=== PATIENT | female | born 1975 | race Caucasian/White ===

== ENCOUNTER 2018-02-05 17:13 | Outpatient (CLI) | END 2018-02-05 17:14 | disposition home or self-care (01) | LOC: LAB 17:13 | PROVIDERS: ATTEND Internal Medicine Rheumatology | DX: M06.9 Rheumatoid arthritis, unspecified (principal); Z76.89 Persons encountering health services in other specified circumstances | CPT/HCPCS: 36415; 80053; 85025; 85651; 86038; 86140; 86200; 86430; 86704; 86706; 86803; 87340 ==

== ENCOUNTER 2018-03-21 15:42 | Outpatient (CLI) | END 2018-03-21 15:43 | disposition home or self-care (01) | LOC: LAB 15:42 | PROVIDERS: ATTEND Internal Medicine Rheumatology | DX: Z79.899 Other long term (current) drug therapy (principal) | CPT/HCPCS: 36415; 80053; 85025 ==

== ENCOUNTER 2018-04-03 11:00 | Emergency (ER) ==
[2018-04-03 11:08] VITALS: BP 123/80; TEMP 98.1; BMI 33.1
--- NOTE | 2018-04-03 11:52 | DI ---
EXAM: Left foot three views HISTORY: Pain COMPARISON: None FINDINGS: The bones are normal. The joints are normal. No focal soft tissue abnormality. IMPERSSION: Normal examination.
--- NOTE | 2018-04-03 11:53 | DI ---
EXAM: Left ankle. Three-view HISTORY: Pain COMPARISON: None FINDINGS: The bones are normal. Ankle mortise is symmetric. No focal soft tissue abnormality. IMPERSSION: Normal examination.
--- NOTE | 2018-04-03 12:22 | ED.PDOC ---
General ED Provider: Dr. IDALIA ONEAL Chief Complaint: Ankle Pain/Injury Stated Complaint: left ankle and fot pain Time Seen by Physician: 11:00 (SEEN WITH LEXI KENNEDY R.N. AT ALL TIMES ) Information Source: Patient Exam Limitations: No limitations Primary Care Provider: CONRAD FAN Nursing and Triage Documentation Reviewed and Agree: Yes Does patient meet sepsis criteria?: No System Inflammatory Response Syndrome: Not Applicable Sepsis Protocol: For patient's 13 years and over: Temp is 96.8 and below OR 101 and greater Pulse >90 BPM Resp >20/minute Acutely Altered Mental Status Are patient's symptoms suggestive of a new infection, such as: -Pneumonia -Skin, Soft Tissue -Endocarditis -UTI -Bone, Joint Infection -Implantable Device -Acute Abdominal Infection -Wound Infection -Meningitis -Blood Stream Catheter Infection -Unknown Musculoskeletal Complaint Exam - Ankle/Foot Complaint/Exam Location of Injury: Reports: Left, Ankle, Foot Mechanism of Injury: Reports: No known trauma Onset/Duration: 2 DAYS Symptoms Are: Reports: Still present Onset of Pain: Reports: Days Initial Severity: Mild Current Severity: Mild Location: Reports: Discrete Character: Reports: Aching Alleviating: Reports: Rest Aggravating: Reports: Movement. Denies: Weight bearing, Prolonged standing Able to Bear Weight: Yes Associated Signs and Symptoms: Denies: Swelling, Redness, Bruising, Fever, Weakness, Numbness, Tingling Gout Risk Factors: Reports: None Related Surgical History: Reports: None Lower Extremity Findings: Absent: Swelling, Ecchymosis, Abnormal contour, Rotation, Ligamentous instability, Laceration, Erythema, Warmth, Blisters Achilles Tendon Abnormality: No Tenderness: Present: Lateral malleolus, Heel Differential Diagnosis: Closed Fracture, Gout, Sprain, Strain Review of Systems - Review Of Systems Constitutional: Reports: No symptoms Eyes: Reports: No symptoms Ears, Nose, Mouth, Throat: Reports: No symptoms Respiratory: Reports: No symptoms Cardiac: Reports: No symptoms GI: Reports: No symptoms : Reports: No symptoms Musculoskeletal: Reports: Joint pain (ANKLE PAIN, FOOT PAIN) Skin: Reports: No symptoms Neurological: Reports: No symptoms Endocrine: Reports: No symptoms Hematologic/Lymphatic: Reports: No symptoms All Other Systems: Reviewed and Negative Past Medical History - Past Medical History Previously Healthy: Yes (ON MTX , HISTORY OF GOUT) Endocrine: Reports: None Cardiovascular: Reports: None Respiratory: Reports: None Hematological: Reports: None Gastrointestinal: Reports: None Genitourinary: Reports: None Neuro/Psych: Reports: None Musculoskeletal: Reports: Gout Cancer: Reports: None Last Menstrual Period: hysterectomy - Surgical History General Surgical History: Reports: None - Family History Family History: Reports: None - Social History Smoking Status: Former smoker Hx Substance Use: No Alcohol Screening: None Physical Exam - Physical Exam Appearance: Well-appearing, No pain distress, Well-nourished Eyes: MAGGI, EOMI, Conjunctiva clear ENT: Ears normal, Nose normal, Oropharynx normal Respiratory: Airway patent, Breath sounds clear, Breath sounds equal, Respirations nonlabored Cardiovascular: RRR, Pulses normal, No rub, No murmur GI/: Soft, Nontender, No masses, Bowel sounds normal, No Organomegaly Musculoskeletal: Normal strength, ROM intact, No edema, No calf tenderness Skin: Warm, Dry, Normal color Neurological: Sensation intact, Motor intact, Reflexes intact, Cranial nerves intact, Alert, Oriented Psychiatric: Affect appropriate, Mood appropriate Critical Care Note - Critical Care Note Total Time (mins): 0 Course - Course Orders, Labs, Meds: Lab Review 04/03/18 11:40 Uric Acid 4.34 Orders Category Date Time Status URIC ACID Stat LAB 04/03/18 11:40 Completed ANKLE, LEFT MIN 3 VIEWS Stat RADS 04/03/18 11:27 Completed FOOT, LEFT 3 VIEWS Stat RADS 04/03/18 11:27 Completed Vital Signs: Temp Pulse Resp BP Pulse Ox 04/03/18 11:00 98.1 F 101 H 20 123/80 97 Departure - Departure Time of Disposition: 12:22 Disposition: HOME SELF-CARE Discharge Problem: Ankle pain Sprain of foot, left Qualifiers: Encounter type: initial encounter Qualified Code(s): S93.602A - Unspecified sprain of left foot, initial encounter Instructions: Arthralgia (ED), Metatarsalgia (DC) Condition: Good Pt referred to PMD for follow-up: Yes IPMP verified?: No Additional Instructions: Please call your Family Physician as soon as possible to schedule a follow-up appointment.SEE YOUR M.D FOR FOLLOW UP RETURN NEEDED Allergies/Adverse Reactions: Allergies No Known Allergies Allergy (Verified 04/03/18 11:10) Home Medications: Ambulatory Orders Gabapentin 600 mg PO TID 01/02/18 Hydrocodone/Acetaminophen [Hydrocodone-Acetamin 7.5-325] 1 each PO TID 01/02/18 Melatonin 3 mg PO DAILY 01/02/18 Folic Acid 1 mg PO DAILY 04/03/18 Methotrexate Sodium [Methotrexate] 2.5 mg PO DIRECTED 04/03/18
== END 2018-04-03 12:45 | disposition home or self-care (01) ==
LOC: ED 11:00
DX: S93.602A Unspecified sprain of left foot, initial encounter (principal); M25.572 Pain in left ankle and joints of left foot
CPT/HCPCS: 36415; 84550; 99282

== ENCOUNTER 2018-05-31 15:18 | Outpatient (CLI) | END 2018-05-31 15:19 | disposition home or self-care (01) | LOC: RHC-LAB 15:18 | PROVIDERS: ATTEND Nurse Practitioner Family | DX: M79.89 Other specified soft tissue disorders (principal); M79.645 Pain in left finger(s) | CPT/HCPCS: 36415; 84550 ==

== ENCOUNTER 2018-07-11 08:03 | Outpatient (CLI) ==
[2018-07-11] MEDS ORDERED: TYLENOL PO STA (08:42)
[2018-07-11] MEDS ORDERED: BENADRYL PO STA (08:43)
[2018-07-11] MEDS ORDERED: SOLU-MEDROL 40 MG IVP STA (08:44)
[2018-07-11] MEDS ORDERED: SODIUM CHLORIDE IV SCH (09:00)
[2018-07-11] MEDS ORDERED: RITUXAN IV SCH (09:00)
[2018-07-11] MEDS ORDERED: SOLU-MEDROL 125 MG IVP STA (13:17)
[2018-07-11 17:25] VITALS: TEMP 98.2
[2018-07-11 17:44] VITALS: BP 115/79
== END 2018-07-11 08:04 | disposition home or self-care (01) ==
LOC: OPMED 08:03
PROVIDERS: ATTEND Internal Medicine Rheumatology
DX: M06.09 Rheumatoid arthritis without rheumatoid factor, multiple sites (principal)
CPT/HCPCS: 96365; 96366; 96375; 96376

== ENCOUNTER 2018-08-16 07:52 | Outpatient (CLI) ==
--- NOTE | 2018-08-16 14:57 | MRI ---
EXAM: MRI lumbar spine without IV contrast. DATE: 16 August 2018. HISTORY: Chronic low back pain. TECHNIQUE: Sagittal and axial T1W and T2W sequences of the lumbar spine along with sagittal IR and c oronal T2W sequences were obtained using 1.2 Rachelle magnet. No IV contrast. COMPARISON: LS spine series 12 August 2018. PA/lateral chest 30 Sep 2015. FINDINGS: There are five [id number] lumbar vertebra. No lumbar scoliosis is evident. No acute lumbar fracture, subluxation, osseous malignancy, or pars interarticularis defect is demonstrated. Lumbar vertebra are normal in height. Bone marrow signal is normal. Intervertebral discs are normal in height. No acute sacral fracture or stress reaction is apparent. SI joints are unremarkable. C onus medullaris terminates at L1-2. No cord edema, syrinx, myelomalacia, or neoplasm is evident. No retroperitoneal lymphadenopathy, paraspinal mass, or aortic aneurysm is seen. Paraspinal musculat ure is symmetric bilaterally. Visible portions of the liver, spleen, adrenal glands, and kidneys rev eal no distinct neoplasm. Segmental analysis: T11-12: Normal. T12-L1: Normal. L1-2: Normal. L2-3: Normal. L3-4: Normal. L4-5: Minimal bilateral foraminal to far lateral disc bulges and minor facet arthropathy cause cause s minor bilateral foraminal narrowing. Right L4 nerve root contacts the disc bulge near the lateral margin the foramen. No central canal stenosis. L5-S1: Normal. IMPRESSIONS: 1. L4-5 minor disc bulge touching the right L4 nerve root could be a source for pain/radiculopathy. 2. No lumbar central canal stenosis.
== END 2018-08-16 07:53 | disposition home or self-care (01) ==
LOC: RAD 07:52
PROVIDERS: ATTEND Internal Medicine Rheumatology
DX: M54.5 Low back pain (principal); G89.29 Other chronic pain; M25.552 Pain in left hip